=== PATIENT | male | born 1955 | race Caucasian/White ===

== ENCOUNTER 2022-06-29 13:07 | Inpatient (IN) | payer MEDICARE, OTHER ==
[2022-06-29 14:17] LABS: #Eosinphils 0.2 thou/uL (0.0-0.7); #Lymphocytes 1.1 thou/uL (1.20-3.40); #Monocytes 0.9 thou/uL (0.11-0.59); #Neutrophils 9.6 thou/uL (1.40-6.50); %Basophils 0.3 % (0.0-1.0); %Eosinophils 1.4 % (0.0-10.0); %Lymphocytes 9.3 % (21.0-51.0); %Monocytes 7.6 % (0.0-10.0); %Neutrophils 81.5 % (42.0-75.0); Hemoglobin 12.8 g/dL (14.0-18.0); Mean Corpuscular HGB CONC 33.2 g/dL (32.0-36.0); Mean Corpuscular Hemoglobin 31.6 pg (27.0-31.0); Mean Corpuscular Volume 95.3 fl (78.0-98.0); Mean Platelet Volume 8.1 fL (7.4-10.4); Platelet Count 245 10x3/uL (130-400); RBC Distribution Width 12.6 % (11.5-14.5); Red Blood Cell (RBC) Count 4.06 mill/uL (4.70-6.10); White Blood Cell (WBC) Count 11.8 10x3/uL (4.8-10.8)
[2022-06-29 14:38] LABS: ALT (SGPT) 14 U/L (8-55); AST (SGOT) 10 U/L (5-34); Albumin 3.5 g/dL (3.4-4.8); Alkaline Phosphatase 75 U/L (40-110); Anion Gap 13 mmol/L (10-20); BUN (Urea Nitrogen) 26 mg/dL (8.4-25.7); Bilirubin, Total 0.4 mg/dL (0.2-1.2); Calc. Creatinine Clearance 0 mL/min (70-130); Carbon Dioxide 20 mmol/L (23-31); Chloride 108 mmol/L (98-107); Estimated GFR 45; Globulin 3.2 g/dL (2.4-3.5); Glucose 259 mg/dL (80-115); Protein, Total 6.7 g/dL (5.8-8.1); Sodium 137 mmol/L (136-145)
[2022-06-29] MEDS ORDERED: Cefepime 2 GM VIAL ONE (15:02)
[2022-06-29] MEDS ORDERED: Ondansetron ODT 4 MG TAB PO PRN (15:08)
[2022-06-29] MEDS ORDERED: Senokot S 8.6-50 MG TAB PO PRN (15:08)
[2022-06-29] MEDS ORDERED: Ondansetron PF 4 MG/2 ML Vial IVP PRN (15:08)
[2022-06-29] MEDS ORDERED: Calcium Carbonate 500 MG ChewTAB PO PRN (15:08)
[2022-06-29] MEDS ORDERED: Dextrose 5% in Water 1,000 ML IV PRN (15:12)
[2022-06-29] MEDS ORDERED: Dextrose 50% Abboject 50 ML SYRINGE SLOW IVP PRN (15:12)
[2022-06-29] MEDS ORDERED: Sodium Chloride 0.9% 1,000 ML IV SCH (15:15)
[2022-06-29] MEDS ORDERED: VANCOMYCIN 2 GRAM/500 ML BAG 2 GM in Premix Bag 1 BAG IVPB SCH (15:30)
[2022-06-29 17:19] LABS: Lactic Acid 1.6 mmol/L (0.5-2.2)
[2022-06-29 17:21] VITALS: BMI 28.5
[2022-06-29] MEDS ORDERED: hydrALAZINE 20 MG/ML VIAL SLOW IVP PRN (17:44)
[2022-06-29] MEDS: HumaLOG 300 UNITS/3 ML VIAL SC PRN (18:30)
[2022-06-29] MEDS: Lactated Ringer's 1,000 ML IV SCH (18:30)
[2022-06-29] MEDS ORDERED: Insulin Glargine 30 UNITS/0.3 ML VIAL SC SCH (21:00)
[2022-06-30] MEDS ORDERED: Cefepime 1 GM in Sodium Chloride 0.9% 100 ML IVPB SCH (03:00)
[2022-06-30] MEDS: Lactated Ringer's 1,000 ML IV SCH (05:43)
[2022-06-30 08:41] LABS: #Eosinphils 0.2 thou/uL (0.0-0.7); #Monocytes 0.7 thou/uL (0.11-0.59); %Basophils 0.4 % (0.0-1.0); %Eosinophils 2.4 % (0.0-10.0); %Lymphocytes 11.2 % (21.0-51.0); %Monocytes 7.7 % (0.0-10.0); %Neutrophils 78.4 % (42.0-75.0); Hemoglobin 11.1 g/dL (14.0-18.0); Mean Corpuscular HGB CONC 32.1 g/dL (32.0-36.0); Mean Corpuscular Hemoglobin 30.9 pg (27.0-31.0); Mean Corpuscular Volume 96.4 fl (78.0-98.0); Platelet Count 224 10x3/uL (130-400); RBC Distribution Width 12.5 % (11.5-14.5); Red Blood Cell (RBC) Count 3.59 mill/uL (4.70-6.10); White Blood Cell (WBC) Count 8.9 10x3/uL (4.8-10.8)
[2022-06-30] MEDS: Insulin Glargine 30 UNITS/0.3 ML VIAL SC SCH ×2 (08:51→21:15)
[2022-06-30 08:52] LABS: Hemoglobin A1c 7.2 % (4.0-6.0)
[2022-06-30] MEDS: Nicotine 21 MG PATCH TD SCH (08:52)
[2022-06-30 09:01] LABS: ALT (SGPT) 12 U/L (8-55); AST (SGOT) 10 U/L (5-34); Albumin 2.9 g/dL (3.4-4.8); Alkaline Phosphatase 61 U/L (40-110); Anion Gap 12 mmol/L (10-20); BUN (Urea Nitrogen) 18 mg/dL (8.4-25.7); Bilirubin, Total 0.4 mg/dL (0.2-1.2); Calc. Creatinine Clearance 70 mL/min (70-130); Calcium 8.5 mg/dL (7.8-10.44); Carbon Dioxide 17 mmol/L (23-31); Chloride 114 mmol/L (98-107); Estimated GFR 61; Globulin 2.7 g/dL (2.4-3.5); Glucose 156 mg/dL (80-115); Magnesium 1.7 mg/dL (1.6-2.6); Potassium 3.9 mmol/L (3.5-5.1); Protein, Total 5.6 g/dL (5.8-8.1); Sodium 139 mmol/L (136-145)
[2022-06-30] MEDS: Acetaminophen 325 MG TAB PO PRN ×2 (12:26→18:29)
[2022-06-30] MEDS ORDERED: VANCOMYCIN IVPB PRN (13:28)
[2022-06-30] MEDS ORDERED: VANCOMYCIN 1.75 GM/500 ML BAG 1.75 GM in Premix Bag 1 BAG IVPB SCH (15:00)
[2022-06-30] MEDS: glipiZIDE 10 MG TAB PO SCH (15:52)
[2022-06-30] MEDS: Gabapentin 300 MG CAP PO SCH (21:15)
[2022-06-30] MEDS: Carvedilol 6.25 MG TAB PO SCH (21:15)
[2022-07-01] MEDS: Acetaminophen 325 MG TAB PO PRN ×3 (02:50→22:07)
[2022-07-01] MEDS: Carvedilol 6.25 MG TAB PO SCH ×2 (03:26→22:06)
[2022-07-01 07:15] LABS: #Eosinphils 0.2 thou/uL (0.0-0.7); #Lymphocytes 1.2 thou/uL (1.20-3.40); #Monocytes 0.7 thou/uL (0.11-0.59); #Neutrophils 5.8 thou/uL (1.40-6.50); %Basophils 0.3 % (0.0-1.0); %Eosinophils 2.9 % (0.0-10.0); %Lymphocytes 14.9 % (21.0-51.0); %Monocytes 8.9 % (0.0-10.0); %Neutrophils 73.1 % (42.0-75.0); Hemoglobin 10.9 g/dL (14.0-18.0); Mean Corpuscular HGB CONC 31.6 g/dL (32.0-36.0); Mean Corpuscular Hemoglobin 30.5 pg (27.0-31.0); Mean Corpuscular Volume 96.5 fl (78.0-98.0); Mean Platelet Volume 8.2 fL (7.4-10.4); Platelet Count 233 10x3/uL (130-400); RBC Distribution Width 12.5 % (11.5-14.5); Red Blood Cell (RBC) Count 3.56 mill/uL (4.70-6.10)
[2022-07-01 07:35] LABS: Anion Gap 10 mmol/L (10-20); BUN (Urea Nitrogen) 21 mg/dL (8.4-25.7); Calc. Creatinine Clearance 66 mL/min (70-130); Calcium 8.9 mg/dL (7.8-10.44); Carbon Dioxide 18 mmol/L (23-31); Chloride 115 mmol/L (98-107); Estimated GFR 57; Glucose 132 mg/dL (80-115); Potassium 4.3 mmol/L (3.5-5.1); Sodium 139 mmol/L (136-145)
[2022-07-01] MEDS: glipiZIDE 10 MG TAB PO SCH (08:05)
[2022-07-01] MEDS: Clopidogrel Bisulfate 75 MG TAB PO SCH (08:06)
[2022-07-01] MEDS: Insulin Glargine 30 UNITS/0.3 ML VIAL SC SCH (08:06)
[2022-07-01] MEDS: Atorvastatin Calcium 20 MG TAB PO SCH (08:08)
[2022-07-01] MEDS: Nicotine 21 MG PATCH TD SCH (08:08)
[2022-07-01] MEDS: Gabapentin 300 MG CAP PO SCH ×3 (08:08→22:06)
[2022-07-01] MEDS ORDERED: Lidocaine 1% (PF) 30 ML VIAL ONE (09:19)
[2022-07-01] MEDS ORDERED: Heparin 10,000 UNITS/ 10 ML VIAL ONE (09:19)
[2022-07-01] MEDS ORDERED: fentaNYL 50 mcg/mL 1 mL Vial ONE (11:54)
[2022-07-01] MEDS ORDERED: Midazolam HCl 2 mg/2 ml Vial ONE (11:54)
[2022-07-01 14:33] LABS: Vancomycin, Trough 20.4 ug/mL
[2022-07-01] MEDS: Vancomycin 1.5 GRAM/300 ML BAG 1.5 GM in Premix Bag 1 BAG IVPB SCH (15:29)
[2022-07-01] MEDS: HumaLOG 300 UNITS/3 ML VIAL SC PRN (18:09)
[2022-07-02] MEDS: Acetaminophen 325 MG TAB PO PRN ×4 (04:17→23:25)
[2022-07-02] MEDS: HumaLOG 300 UNITS/3 ML VIAL SC PRN ×4 (06:16→20:31)
[2022-07-02 07:03] LABS: #Eosinphils 0.4 thou/uL (0.0-0.7); #Lymphocytes 1.1 thou/uL (1.20-3.40); #Monocytes 0.9 thou/uL (0.11-0.59); #Neutrophils 5.1 thou/uL (1.40-6.50); %Basophils 0.3 % (0.0-1.0); %Eosinophils 5.2 % (0.0-10.0); %Lymphocytes 14.7 % (21.0-51.0); %Monocytes 11.7 % (0.0-10.0); %Neutrophils 68.2 % (42.0-75.0); Hemoglobin 10.6 g/dL (14.0-18.0); Mean Corpuscular HGB CONC 32.8 g/dL (32.0-36.0); Mean Corpuscular Hemoglobin 31.5 pg (27.0-31.0); Mean Corpuscular Volume 95.9 fl (78.0-98.0); Mean Platelet Volume 8.2 fL (7.4-10.4); Platelet Count 183 10x3/uL (130-400); RBC Distribution Width 12.6 % (11.5-14.5); Red Blood Cell (RBC) Count 3.37 mill/uL (4.70-6.10); White Blood Cell (WBC) Count 7.4 10x3/uL (4.8-10.8)
[2022-07-02 07:27] LABS: Anion Gap 12 mmol/L (10-20); BUN (Urea Nitrogen) 27 mg/dL (8.4-25.7); Calc. Creatinine Clearance 69 mL/min (70-130); Calcium 9.4 mg/dL (7.8-10.44); Carbon Dioxide 20 mmol/L (23-31); Chloride 109 mmol/L (98-107); Estimated GFR 59; Glucose 195 mg/dL (80-115); Potassium 4.9 mmol/L (3.5-5.1); Sodium 136 mmol/L (136-145)
[2022-07-02] MEDS: Clopidogrel Bisulfate 75 MG TAB PO SCH (08:36)
[2022-07-02] MEDS: Carvedilol 6.25 MG TAB PO SCH ×2 (08:36→20:29)
[2022-07-02] MEDS: Gabapentin 300 MG CAP PO SCH ×3 (08:36→20:29)
[2022-07-02] MEDS: Atorvastatin Calcium 20 MG TAB PO SCH (08:37)
[2022-07-02] MEDS: Nicotine 21 MG PATCH TD SCH (08:39)
[2022-07-02] MEDS ORDERED: Iopamidol 370 76% 100 ML VIAL ONE (11:02)
[2022-07-02] MEDS: Vancomycin 1.5 GRAM/300 ML BAG 1.5 GM in Premix Bag 1 BAG IVPB SCH (17:46)
[2022-07-02] MEDS: glipiZIDE 10 MG TAB PO SCH (17:47)
[2022-07-02] MEDS: Insulin Glargine 30 UNITS/0.3 ML VIAL SC SCH (20:30)
[2022-07-03] MEDS: Acetaminophen 325 MG TAB PO PRN ×3 (03:00→20:35)
[2022-07-03] MEDS: HumaLOG 300 UNITS/3 ML VIAL SC PRN ×3 (06:19→17:14)
[2022-07-03 08:09] LABS: #Eosinphils 0.4 thou/uL (0.0-0.7); #Lymphocytes 1.3 thou/uL (1.20-3.40); #Monocytes 0.8 thou/uL (0.11-0.59); #Neutrophils 4.7 thou/uL (1.40-6.50); %Basophils 0.3 % (0.0-1.0); %Lymphocytes 17.6 % (21.0-51.0); %Monocytes 11.6 % (0.0-10.0); %Neutrophils 65.6 % (42.0-75.0); Hemoglobin 10.5 g/dL (14.0-18.0); Mean Corpuscular HGB CONC 32.5 g/dL (32.0-36.0); Mean Corpuscular Hemoglobin 31.3 pg (27.0-31.0); Mean Corpuscular Volume 96.3 fl (78.0-98.0); Mean Platelet Volume 8.3 fL (7.4-10.4); Platelet Count 198 10x3/uL (130-400); RBC Distribution Width 12.6 % (11.5-14.5); Red Blood Cell (RBC) Count 3.37 mill/uL (4.70-6.10); White Blood Cell (WBC) Count 7.1 10x3/uL (4.8-10.8)
[2022-07-03] MEDS: Atorvastatin Calcium 20 MG TAB PO SCH (08:33)
[2022-07-03] MEDS: glipiZIDE 10 MG TAB PO SCH ×2 (08:33→15:06)
[2022-07-03] MEDS: Carvedilol 6.25 MG TAB PO SCH ×2 (08:33→20:33)
[2022-07-03] MEDS: Insulin Glargine 30 UNITS/0.3 ML VIAL SC SCH ×2 (08:34→20:36)
[2022-07-03] MEDS: Nicotine 21 MG PATCH TD SCH (08:34)
[2022-07-03] MEDS: Gabapentin 300 MG CAP PO SCH ×3 (08:34→20:35)
[2022-07-03 08:38] LABS: Anion Gap 11 mmol/L (10-20); BUN (Urea Nitrogen) 32 mg/dL (8.4-25.7); Calc. Creatinine Clearance 66 mL/min (70-130); Carbon Dioxide 21 mmol/L (23-31); Chloride 111 mmol/L (98-107); Estimated GFR 56; Glucose 179 mg/dL (80-115); Potassium 4.5 mmol/L (3.5-5.1); Sodium 138 mmol/L (136-145)
[2022-07-03 15:06] LABS: Vancomycin, Trough 23.4 ug/mL
[2022-07-03] MEDS: Vancomycin 1.5 GRAM/300 ML BAG 1.5 GM in Premix Bag 1 BAG IVPB SCH (16:04)
[2022-07-04] MEDS: Acetaminophen 325 MG TAB PO PRN ×3 (00:09→20:08)
[2022-07-04] MEDS: Vancomycin 1 GM in Premix Bag 1 BAG IVPB SCH (03:22)
[2022-07-04 07:23] LABS: #Eosinphils 0.4 thou/uL (0.0-0.7); #Lymphocytes 1.5 thou/uL (1.20-3.40); #Monocytes 0.8 thou/uL (0.11-0.59); #Neutrophils 5.2 thou/uL (1.40-6.50); %Basophils 0.6 % (0.0-1.0); %Eosinophils 5.5 % (0.0-10.0); %Lymphocytes 18.2 % (21.0-51.0); %Monocytes 10.4 % (0.0-10.0); %Neutrophils 65.3 % (42.0-75.0); Mean Corpuscular HGB CONC 33.3 g/dL (32.0-36.0); Mean Corpuscular Hemoglobin 32.1 pg (27.0-31.0); Mean Corpuscular Volume 96.3 fl (78.0-98.0); Mean Platelet Volume 8.2 fL (7.4-10.4); Platelet Count 202 10x3/uL (130-400); RBC Distribution Width 12.7 % (11.5-14.5); Red Blood Cell (RBC) Count 3.42 mill/uL (4.70-6.10)
[2022-07-04 07:43] LABS: Anion Gap 13 mmol/L (10-20); BUN (Urea Nitrogen) 36 mg/dL (8.4-25.7); Calc. Creatinine Clearance 67 mL/min (70-130); Calcium 9.2 mg/dL (7.8-10.44); Carbon Dioxide 22 mmol/L (23-31); Chloride 111 mmol/L (98-107); Estimated GFR 57; Glucose 163 mg/dL (80-115); Potassium 4.8 mmol/L (3.5-5.1); Sodium 141 mmol/L (136-145)
[2022-07-04] MEDS: glipiZIDE 10 MG TAB PO SCH ×2 (08:45→16:58)
[2022-07-04] MEDS: Carvedilol 6.25 MG TAB PO SCH ×2 (08:46→20:08)
[2022-07-04] MEDS: Atorvastatin Calcium 20 MG TAB PO SCH (08:46)
[2022-07-04] MEDS: Gabapentin 300 MG CAP PO SCH ×3 (08:46→20:07)
[2022-07-04] MEDS: Nicotine 21 MG PATCH TD SCH (08:47)
[2022-07-04] MEDS: Insulin Glargine 30 UNITS/0.3 ML VIAL SC SCH ×2 (08:47→20:08)
[2022-07-05] MEDS: Vancomycin 1 GM in Premix Bag 1 BAG IVPB SCH (03:18)
[2022-07-05] MEDS: Carvedilol 6.25 MG TAB PO SCH ×2 (07:01→21:22)
[2022-07-05] MEDS: Gabapentin 300 MG CAP PO SCH ×3 (07:49→21:22)
[2022-07-05] MEDS: glipiZIDE 10 MG TAB PO SCH ×2 (07:49→17:44)
[2022-07-05] MEDS: Nicotine 21 MG PATCH TD SCH (07:51)
[2022-07-05] MEDS: Insulin Glargine 30 UNITS/0.3 ML VIAL SC SCH ×2 (07:51→21:23)
[2022-07-05] MEDS ORDERED: Protamine Sulfate 50 MG/5 ML VIAL ONE (08:57)
[2022-07-05] MEDS ORDERED: Heparin 5,000 UNITS/ML VIAL ONE (08:57)
[2022-07-05] MEDS ORDERED: Dexamethasone 4 mg/ml Vial ONE (08:57)
[2022-07-05] MEDS ORDERED: Bupivacaine HCl 0.5%/Epinephrine 1:200,000/PF 30 ml Vial ONE (08:57)
[2022-07-05] MEDS: Atorvastatin Calcium 20 MG TAB PO SCH (09:00)
[2022-07-05] MEDS ORDERED: fentaNYL PF 100 MCG/2 ML SYRINGE ONE (09:13)
[2022-07-05] MEDS ORDERED: Sodium Chloride 0.9% 100 ML ONE (09:15)
[2022-07-05] MEDS ORDERED: CEFAZOLIN 2 GM VIAL ONE (09:15)
[2022-07-05] MEDS ORDERED: Norepinephrine 4 MG/4 ML VIAL ONE (09:18)
[2022-07-05] MEDS ORDERED: PHENYLEPHRINE-NS 100 MCG/ML 10 ML SYRINGE ONE (09:18)
[2022-07-05] MEDS ORDERED: Phenylephrine 10 MG/ML VIAL ONE (09:30)
[2022-07-05] MEDS ORDERED: PROPOFOL 200 MG/20 ML VIAL ONE (09:30)
[2022-07-05] MEDS ORDERED: Lidocaine 2% PF 5 ML VIAL ONE (09:30)
[2022-07-05] MEDS ORDERED: Rocuronium Bromide 10 MG/ML (10ML VIAL) ONE (09:30)
[2022-07-05] MEDS ORDERED: Ondansetron PF 4 MG/2 ML Vial ONE (09:30)
[2022-07-05] MEDS ORDERED: CEFAZOLIN 2 GM in Sodium Chloride 0.9% 100 ML IVPB SCH (10:00)
[2022-07-05] MEDS ORDERED: SUGAMMADEX SODIUM 200 MG/2 ML VIAL ONE (10:32)
[2022-07-05] MEDS ORDERED: Fentanyl 250 MCG/5 ML VIAL ONE (12:12)
[2022-07-05] MEDS ORDERED: Promethazine HCl 25 MG/ML VIAL IM PRN (12:47)
[2022-07-05] MEDS ORDERED: Ondansetron HCl/PF 4 MG/2 ML Vial IVP PRN (12:47)
[2022-07-05] MEDS ORDERED: Fentanyl 100 MCG/2 ML VIAL SLOW IVP PRN (13:00)
[2022-07-05] MEDS ORDERED: traMADol HCl 50 MG TAB PO PRN ×2 (13:00)
[2022-07-05] MEDS ORDERED: fentaNYL 50 mcg/mL 1 mL Vial SLOW IVP PRN ×2 (13:00→13:30)
[2022-07-05] MEDS: CEFAZOLIN 2 GM in Sodium Chloride 0.9% 100 ML IVPB SCH (17:43)
[2022-07-05] MEDS: HumaLOG 300 UNITS/3 ML VIAL SC PRN ×2 (17:43→21:23)
[2022-07-05] MEDS: Acetaminophen 325 MG TAB PO PRN (21:23)
[2022-07-06] MEDS: CEFAZOLIN 2 GM in Sodium Chloride 0.9% 100 ML IVPB SCH ×3 (01:40→17:09)
[2022-07-06 03:19] LABS: #Basophils 0.1 thou/uL (0.0-0.2); #Lymphocytes 0.8 thou/uL (1.20-3.40); #Neutrophils 14.1 thou/uL (1.40-6.50); %Basophils 0.5 % (0.0-1.0); %Eosinophils 0.2 % (0.0-10.0); %Lymphocytes 4.8 % (21.0-51.0); %Monocytes 5.9 % (0.0-10.0); %Neutrophils 88.6 % (42.0-75.0); Hemoglobin 10.3 g/dL (14.0-18.0); Mean Corpuscular HGB CONC 34.8 g/dL (32.0-36.0); Mean Corpuscular Hemoglobin 33.8 pg (27.0-31.0); Mean Corpuscular Volume 97.1 fl (78.0-98.0); Mean Platelet Volume 8.2 fL (7.4-10.4); Platelet Count 199 10x3/uL (130-400); RBC Distribution Width 12.8 % (11.5-14.5); Red Blood Cell (RBC) Count 3.07 mill/uL (4.70-6.10); White Blood Cell (WBC) Count 15.9 10x3/uL (4.8-10.8)
[2022-07-06 03:40] LABS: Vancomycin, Trough 19.2 ug/mL
[2022-07-06] MEDS: Vancomycin 1 GM in Premix Bag 1 BAG IVPB SCH (03:47)
[2022-07-06] MEDS: HumaLOG 300 UNITS/3 ML VIAL SC PRN ×4 (03:58→20:33)
[2022-07-06] MEDS ORDERED: Vancomycin 1 GM in Premix Bag 1 BAG IVPB SCH (04:00)
[2022-07-06] MEDS: Carvedilol 6.25 MG TAB PO SCH ×2 (08:48→20:31)
[2022-07-06] MEDS: Aspirin 81 mg Enteric Coated Tablet PO SCH (08:48)
[2022-07-06] MEDS: Gabapentin 300 MG CAP PO SCH ×3 (08:48→20:31)
[2022-07-06] MEDS: Atorvastatin Calcium 20 MG TAB PO SCH (08:48)
[2022-07-06] MEDS: glipiZIDE 10 MG TAB PO SCH ×2 (08:48→16:16)
[2022-07-06] MEDS: Nicotine 21 MG PATCH TD SCH (08:49)
[2022-07-06] MEDS: Insulin Glargine 30 UNITS/0.3 ML VIAL SC SCH ×2 (08:49→20:32)
[2022-07-06] MEDS: metFORMIN 500 MG TAB PO SCH (16:16)
[2022-07-06] MEDS: Acetaminophen 325 MG TAB PO PRN (23:44)
[2022-07-07] MEDS ORDERED: VANCOMYCIN IVPB SCH (06:30)
[2022-07-07] MEDS ORDERED: Vancomycin HCl 1 GM in Sodium Chloride 0.9% 250 ML 250 ML IVPB SCH (09:00)
[2022-07-07] MEDS: metFORMIN 500 MG TAB PO SCH ×2 (09:27→17:52)
[2022-07-07] MEDS: Atorvastatin Calcium 20 MG TAB PO SCH (09:27)
[2022-07-07] MEDS: Vancomycin 1 GM in Premix Bag 1 BAG IVPB SCH (09:27)
[2022-07-07] MEDS: Clopidogrel Bisulfate 75 MG TAB PO SCH (09:27)
[2022-07-07] MEDS: glipiZIDE 10 MG TAB PO SCH ×2 (09:27→15:45)
[2022-07-07] MEDS: Aspirin 81 mg Enteric Coated Tablet PO SCH (09:27)
[2022-07-07] MEDS: Carvedilol 6.25 MG TAB PO SCH ×2 (09:27→20:29)
[2022-07-07] MEDS: Gabapentin 300 MG CAP PO SCH ×3 (09:27→20:29)
[2022-07-07] MEDS: Nicotine 21 MG PATCH TD SCH (09:28)
[2022-07-07] MEDS: Insulin Glargine 30 UNITS/0.3 ML VIAL SC SCH ×3 (09:28→20:36)
[2022-07-07] MEDS: HumaLOG 300 UNITS/3 ML VIAL SC PRN (12:42)
[2022-07-07] MEDS ORDERED: CEFAZOLIN 2 GM in Sodium Chloride 0.9% 100 ML IVPB SCH (14:00)
[2022-07-07] MEDS: Acetaminophen 325 MG TAB PO PRN (23:05)
[2022-07-08 08:26] LABS: Vancomycin, Trough 20.2 ug/mL
[2022-07-08] MEDS: metFORMIN 500 MG TAB PO SCH ×2 (09:30→17:28)
[2022-07-08] MEDS: Gabapentin 300 MG CAP PO SCH ×3 (09:30→20:10)
[2022-07-08] MEDS: glipiZIDE 10 MG TAB PO SCH ×2 (09:30→17:27)
[2022-07-08] MEDS: Clopidogrel Bisulfate 75 MG TAB PO SCH (09:30)
[2022-07-08] MEDS: Atorvastatin Calcium 20 MG TAB PO SCH (09:30)
[2022-07-08] MEDS: Carvedilol 6.25 MG TAB PO SCH ×2 (09:30→20:11)
[2022-07-08] MEDS: Aspirin 81 mg Enteric Coated Tablet PO SCH (09:30)
[2022-07-08] MEDS: Nicotine 21 MG PATCH TD SCH (09:31)
[2022-07-08] MEDS: Insulin Glargine 30 UNITS/0.3 ML VIAL SC SCH ×2 (09:31→20:20)
[2022-07-08] MEDS: Vancomycin 1 GM in Premix Bag 1 BAG IVPB SCH (10:42)
[2022-07-08] MEDS: Sulfameth/Trimethoprim DS 800-160mg TAB PO SCH (20:11)
[2022-07-08] MEDS: Acetaminophen 325 MG TAB PO PRN (20:12)
[2022-07-09] MEDS: Acetaminophen 325 MG TAB PO PRN (01:14)
[2022-07-09 08:46] VITALS: BP 130/71; TEMP 97.7
[2022-07-09] MEDS: glipiZIDE 10 MG TAB PO SCH (09:05)
[2022-07-09] MEDS: Carvedilol 6.25 MG TAB PO SCH (09:05)
[2022-07-09] MEDS: Aspirin 81 mg Enteric Coated Tablet PO SCH (09:05)
[2022-07-09] MEDS: Gabapentin 300 MG CAP PO SCH (09:05)
[2022-07-09] MEDS: Sulfameth/Trimethoprim DS 800-160mg TAB PO SCH (09:05)
[2022-07-09] MEDS: metFORMIN 500 MG TAB PO SCH (09:06)
[2022-07-09] MEDS: Nicotine 21 MG PATCH TD SCH (09:06)
[2022-07-09] MEDS: Atorvastatin Calcium 20 MG TAB PO SCH (09:06)
[2022-07-09] MEDS: Insulin Glargine 30 UNITS/0.3 ML VIAL SC SCH (09:06)
[2022-07-09] MEDS: Clopidogrel Bisulfate 75 MG TAB PO SCH (09:06)
== END 2022-07-09 12:44 | disposition swing bed (61) | DRG 253 ==
LOC: ERS 13:07 → SUATTDRO 13:07 → T4-A 16:28
PROVIDERS: ADMIT Internal Medicine; ATTEND Internal Medicine
PROC: B41D1ZZ Fluoroscopy of Aorta and Bilateral Lower Extremity Arteries using Low Osmolar Contrast (ICD-10-PCS; 2022-07-01)
PROC: 041K09L Bypass Right Femoral Artery to Popliteal Artery with Autologous Venous Tissue, Open Approach (ICD-10-PCS; principal; 2022-07-05)
PROC: 06BP4ZZ Excision of Right Saphenous Vein, Percutaneous Endoscopic Approach (ICD-10-PCS; 2022-07-05)
PROC: 0HBKXZX Excision of Right Lower Leg Skin, External Approach, Diagnostic (ICD-10-PCS; 2022-07-05)
PROC: 0HDKXZZ Extraction of Right Lower Leg Skin, External Approach (ICD-10-PCS; 2022-07-05)
DX: E11.52 Type 2 diabetes mellitus with diabetic peripheral angiopathy with gangrene (principal); I13.0 Hypertensive heart and chronic kidney disease with heart failure and stage 1 through stage 4 chronic kidney disease, or unspecified chronic kidney disease; L03.115 Cellulitis of right lower limb; T82.856A Stenosis of peripheral vascular stent, initial encounter; B95.62 Methicillin resistant Staphylococcus aureus infection as the cause of diseases classified elsewhere; Y83.1 Surgical operation with implant of artificial internal device as the cause of abnormal reaction of the patient, or of later complication, without mention of misadventure at the time of the procedure; L08.0 Pyoderma; E11.22 Type 2 diabetes mellitus with diabetic chronic kidney disease; N18.31 Chronic kidney disease, stage 3a; E11.51 Type 2 diabetes mellitus with diabetic peripheral angiopathy without gangrene; E78.5 Hyperlipidemia, unspecified; I50.9 Heart failure, unspecified; F17.210 Nicotine dependence, cigarettes, uncomplicated; Z89.431 Acquired absence of right foot; Z79.84 Long term (current) use of oral hypoglycemic drugs
CPT/HCPCS: 36245; 36415; 36416; 75630; 75710; 80048; 80053; 80202; 82565; 83036; 83605; 83735; 85025; 85652; 86140; 87040; 87070; 87077; 87186; 87205; 88305; 96361; 96365; 96375; 97139; C1760; C1769; C1776; C1894; J0692; J1100; J1644; J1650; J1815; J2001; J2250; J2370; J2405; J2704; J2720; J3010; J3370; J3370-JW; J3490; J7120; Q9967